=== PATIENT | female | born 1980 | race African-American/Black ===

== ENCOUNTER 2019-07-26 09:58 | Emergency (ER) | payer SELFPAY ==
[~2019-07-26] VITALS: Ht 157.5 cm; Wt 81.6 kg
[2019-07-26 10:21] VITALS: BP 107/64
[2019-07-26] MEDS ORDERED: cefTRIAXone SOD 1,000 MG VL IM ONE (11:15)
== END 2019-07-26 12:02 | disposition home or self-care (01) ==
LOC: ER 09:58
DX: J20.9 Acute bronchitis, unspecified (principal); J03.90 Acute tonsillitis, unspecified
CPT/HCPCS: 71046; 96372; 99283; J0696

== ENCOUNTER → 2019-10-19 | Emergency (ER) | payer OTHER, SELFPAY ==
[~2019-10-19] VITALS: Ht 157.5 cm; Wt 97.5 kg
[2019-10-19 13:35] VITALS: BP 136/77
== END | disposition home or self-care (01) ==
LOC: ER 12:58
DX: R05 Cough (principal); R50.9 Fever, unspecified; R06.02 Shortness of breath; Z20.828 Contact with and (suspected) exposure to other viral communicable diseases
CPT/HCPCS: 71045; 87635